=== PATIENT | female | born 1955 | race Caucasian/White ===

== ENCOUNTER → 2016-10-31 | Outpatient (CLI) | payer OTHER ==
--- NOTE | 2016-10-31 15:37 | US ---
Limited Abdominal Ultrasound INDICATION: Limited abdominal ultrasound for abdominal pain for four days. No priors for comparison. TECHNIQUE: Limited right upper quadrant ultrasound is performed. FINDINGS: Pancreas is within normal limits. Tail is visualized partially. Abdominal aorta is normal i n size. Liver measures 15 cm and is normal in echotexture. The liver edge is normal. Main portal vein is patent. Hepatic vein is patent. Gallbladder shows a single focus of adenomyosis, or polyp, measuring 2.6 mm. No stones or sludge. Gallbladder wall measures 2.6 mm, but the gallbladde r is overall decompressed. Common duct measures 3.3 mm. Sonographic Satllings sign is negative. Right kidney measures 9.2 x 4.8 x 4.2 cm. No ascites or pleural effusion. No hydronephrosis. Incidentally noted also is a peripancreatic lymph node that measures 1.3 x 1.2 x 0.7 cm. It has tata l ultrasound features. IMPRESSION: 1. Single echogenic focus along the gallbladder wall representing either adenomyosis or polyp. 2. Nonspecific peripancreatic lymph node of 1.3 x 1.2 x 0.7 cm. 3. Otherwise normal limited right upper quadrant ultrasound.
--- NOTE | 2016-10-31 15:45 | DX ---
DEXA Bone Mineral Densitometry Clinical Indications: Age-related osteoporosis. Follow-up. Scoliosis. Comparison: August 2015 Technique: Bone Mineral Densitometry (BMD) by Dual Energy X-Ray Absorptiometry (DEXA) was performed utilizing the [employer] scanner. The lumbar spine was evaluated in the AP projection. The bilat eral hips and forearm were evaluated in the AP projection. Vertebral fracture assessment was also pe rformed. AP Lumbar Spine: The L1, L2, L3 and L4 vertebral bodies were evaluated. Significant scoliotic curvat ure and degenerative change limits evaluation, but useful for comparison. BMD: 1.049 gm/cm2 T-score: -1.2 SD Z-score: 0.8 SD 12% increase, however could be positional. AP left Hip: Neck BMD: 0.811 gm/cm2 T-score: -1.6 SD Z-score: 0.1 SD 4% decrease AP right Hip: Total BMD: 0.770 gm/cm2 T-score: -1.9 SD Z-score: -0.4 SD 6% decrease AP left Forearm, 10/14: BMD: 0.683 gm/cm2 T-score: -2.2 SD Z-score: -1.1 SD 4% increase Vertebral Fracture Assessment: No significant fracture deformity. Conclusion: Considering the lowest measured site, the patient is osteoporotic. The ten year risk for any major osteoporotic fracture is 14.5% and for a hip fracture is 0.9%. Any bone loss in this patient is probably related to aging or estrogen deficiency. To prevent osteoporosis and to promote bone density, consider the following recommendations: 1. Pursue a regular regimen of weightbearing and muscle strengthening exercises in order to reduce t he risk of falls and fracture (as tolerated by the patient's general medical condition). 2. Ensure that total daily calcium intake is at least 1500 mg (diet plus supplements). 3. Check serum hydroxy vitamin D3 (normal >30ng/ml). 4. Ensure daily intake of vitamin D is 800 international units. 5. Consider follow-up DEXA scan in two years to assess the rate of bone loss in this patient. 6. Consider excluding common secondary causes of bone loss. Laboratory evaluation might include CBC , TSH, calcium, phosphorous, albumin, creatinine, alkaline phosphatase, PTH, serum, electrophoresis ( SPEP or UPEP), and antitissue transglutaminase antibody levels (celiac disease), and hydroxy vitamin D3, as well as a 24-hour urine calcium.
== END ==
LOC: FIMAGING 13:11
PROVIDERS: ATTEND Family Medicine
DX: Z13.820 Encounter for screening for osteoporosis (principal); M85.80 Other specified disorders of bone density and structure, unspecified site; R10.11 Right upper quadrant pain

== ENCOUNTER → 2016-10-31 | Outpatient (CLI) | payer OTHER ==
[~2016-10-31] MED LIST: IOPAMIDOL (ISOVUE-300) 100 ML BTL IV ONE
--- NOTE | 2016-10-31 19:17 | CT ---
CT Scan of the Abdomen and Pelvis, With Contrast Indication: Abdominal pain in the right upper and lower quadrants in a 61-year-old female. Technique: Multidetector CT images of the abdomen and pelvis were obtained following the uneventful intravenous administration of 85 mL Isovue-300 contrast. No oral contrast is administered. Axial im ages are obtained at 5-mm intervals and reformatted at 1.5-mm thickness. The examination is reviewed on the workstation at multiple window/level settings. Sagittal and coronal reformations are perform ed. Dose reduction techniques were utilized for this examination. Comparison: Comparison to the right upper quadrant ultrasound study performed earlier today and nonc ontrast CT of the abdomen and pelvis of May 22, 2013. Abdomen Lung bases: No infiltrate is identified. No pleural fluid. Liver: Normal. Biliary system: Negative for cholelithiasis. No biliary ductal dilatation is identified. Spleen: Normal. Pancreas: Normal. Adrenals: Normal. Kidneys: No obstruction or solid masses. The right hydronephrosis has resolved since the May study. There is no nephrolithiasis or hydronephrosis. Incidentally, there is an indeterminate wel l-circumscribed low-attenuation area involving the lower pole of the right kidney, with Hounsfield de nsity of 40-50 units. Targeted renal ultrasound could be obtained for further characterization. Abdominal Aorta: No aneurysm. No ascites, or retroperitoneal lymphadenopathy. CT Pelvis Findings: A normal appendix is visualized. No free air is seen. Mildly dilated fluid-yannick led bowel loops are seen in the right lower quadrant. The bladder contour is normal, and no ureteral dilatation is seen. Multiple pelvic phleboliths are noted. Prominent spinal degenerative changes are seen, with a marked scoliotic curvature, convex to the righ t. Spinal degenerative changes are noted. Impressions 1. A normal appendix is visualized. 2. Mildly dilated small bowel loops are seen in the right lower quadrant, without free air or ascite s. 3. See above report for additional findings. A preliminary report was called to the patient's healthcare provider.
== END ==
LOC: FIMAGING 16:22
PROVIDERS: ATTEND Family Medicine
DX: R10.11 Right upper quadrant pain (principal)
CPT/HCPCS: Q9967

== ENCOUNTER → 2016-12-03 | Outpatient (CLI) | payer OTHER | LOC: FIMAGING 07:57 | PROVIDERS: ATTEND Family Medicine | DX: N28.1 Cyst of kidney, acquired (principal) ==

== ENCOUNTER → 2017-09-07 | Outpatient (CLI) | payer OTHER | LOC: FIMAGING 16:04 | PROVIDERS: ATTEND Family Medicine | DX: Z12.31 Encounter for screening mammogram for malignant neoplasm of breast (principal) | CPT/HCPCS: G0202 ==

== ENCOUNTER → 2018-09-24 | Outpatient (CLI) | payer OTHER | LOC: FIMAGING 08:07 | PROVIDERS: ATTEND Family Medicine | DX: Z12.31 Encounter for screening mammogram for malignant neoplasm of breast (principal) ==